=== PATIENT | male | born 1980 | race Caucasian/White ===

== ENCOUNTER 2016-12-16 16:35 | Emergency (ER) | payer SELFPAY ==
[2016-12-16 16:42] VITALS: BP 126/81
[2016-12-16] MEDS ORDERED: OXYCODONE-ACETAMINOPHEN 5-325 MG TABLET PO ONE (17:28)
[2016-12-16] MEDS ORDERED: PROMETHAZINE HCL 25 MG TABLET PO ONE (17:28)
[2016-12-16] MEDS ORDERED: CLINDAMYCIN HCL 150 MG CAPSULE PO ONE (17:29)
--- NOTE | 2016-12-16 17:39 | ER Document Report ---
ED Oral Problem - General Chief Complaint: Dental Injury Stated Complaint: FALL,MOUTH INJURY Time Seen by Provider: 12/16/16 17:25 Notes: Patient fell going up some steps and he hit his upper teeth and lip against the edge of a step. It caused his upper left central incisor to be avulsed from the gum. Denies any other injuries. No loss of consciousness. No neurologic deficits. Does not have any neck pain. TRAVEL OUTSIDE OF THE [place] IN LAST 30 DAYS: No - Related Data Allergies/Adverse Reactions: cillins Allergy (Uncoded 12/16/16 16:40) Past Medical History - Social History Smoking Status: Never Smoker Chew tobacco use (# tins/day): No Frequency of alcohol use: None Drug Abuse: None Family History: Reviewed & Not Pertinent Patient has suicidal ideation: No Patient has homicidal ideation: No Musculoskeltal Medical History: Denies None, Denies Hx Arthritis, Denies Hx Fibromyalgia, Denies Hx Gout, Denies Hx Multiple Sclerosis, Denies Hx Muscular Dystrophy, Denies Hx Muscle Spasm, Denies Hx Muscle Weakness, Denies Hx Musculoskeletal Deformity, Denies Hx Musculoskeletal Trauma, Denies Hx Myositis , Denies Hx Restless Leg Syndrome, Denies Other - Immunizations Hx Diphtheria, Pertussis, Tetanus Vaccination: Yes Review of Systems - Review of Systems Notes: REVIEW OF SYSTEMS: CONSTITUTIONAL : Denies fever. EENT: See HPI. CARDIOVASCULAR: Denies chest pain. RESPIRATORY: Denies cough, chest congestion, or shortness of breath. GASTROINTESTINAL: Denies abdominal pain or nausea, vomiting, or diarrhea. MUSCULOSKELETAL: Denies back or neck pain. Denies joint pain or swelling. SKIN: Denies rash or skin lesions. NEUROLOGICAL: Denies LOC or altered mental status. Denies headache. Denies sensory loss or motor deficits. ALL OTHER SYSTEMS REVIEWED AND NEGATIVE. Physical Exam - Vital signs Vitals: Pulse BP Pulse Ox 96 126/81 H 96 12/16/16 16:39 12/16/16 16:39 12/16/16 16:39 Interpretation: Normal - Notes Notes: PHYSICAL EXAMINATION: GENERAL: Well-appearing HEAD: Atraumatic, normocephalic. ENT: oropharynx clear without exudates. Moist mucous membranes. Left upper central incisor has been completely avulsed and patient has it in a cup of milk. The gingiva around the socket appears to be intact. There is no lacerations requiring repair. NECK: Normal range of motion, supple. LUNGS: Breath sounds clear and equal bilaterally. HEART: Regular rate and rhythm without murmurs. ABDOMEN: Soft, nontender. No guarding or rebound. BACK: No tenderness throughout entire back. EXTREMITIES: Normal range of motion without pain. NEUROLOGICAL: Normal speech, normal gait. Normal sensory, motor, and reflex exams. Awake, alert, and oriented x3. Cranial nerves normal. Course - Re-evaluation Re-evalutation: 12/16/16 21:42 I rinsed the tooth off and then reinserted it into its socket in proper alignment. I forcefully pushed it up firmly and it seems to have a fairly firm seating in the socket. I provided the patient with a small 2 x 2 gauze bandage to used to bite down on to keep the tooth in place. I spoke with oral surgeon, Dr. Feldman, who agreed to see the patient in his office tomorrow morning at 8:00. I appreciate Dr. Feldman kind willingness to help out with this patient's care. - Vital Signs Vital signs: Temp Pulse Resp BP Pulse Ox 98.6 F 96 126/81 H 96 12/16/16 16:42 12/16/16 16:39 12/16/16 16:39 12/16/16 16:39 Discharge - Discharge Clinical Impression: Avulsed tooth Qualifiers: Encounter type: initial encounter Qualified Code(s): S03.2XXA - Dislocation of tooth, initial encounter Condition: Stable Disposition: HOME, SELF-CARE Additional Instructions: Avulsed Tooth Permanent teeth that have been avulsed or knocked out of their socket in the jaw might be saved if re-inserted in the socket as soon as possible. Salvage of the tooth depends on how long the tooth was out of the socket, how badly the blood supply into the socket was damaged, whether the tooth itself was damaged, comination of the socket with bacteria or subsequent infection, and other factors. Following re-insertion, the tooth will need to be stabilized by an oral surgeon or other dental specialist using wires or other devises. If the tooth is not saved, an eventual root canal procedure may be necessary. Clindamycin You have been given a prescription for the antibiotic clindamycin. It is often prescribed for infections in the mouth, such as dental infections or abscesses, and for skin infections due to MRSA. It's important that you take all the medication, unless instructed otherwise by your physician. Failure to complete the entire course can result in relapse of your condition. Common side effects of antibiotics include nausea, intestinal cramping, or diarrhea. Women may develop vaginal yeast infections, and babies can get yeast (thrush) in the mouth following the use of antibiotics. Contact your physician if you develop significant side effects from this medication. Allergy to this antibiotic can result in hives, wheezing, faintness, or itching. If symptoms of allergy occur, stop the medication and call the doctor. Oral Narcotic Medication You have been given a prescription for pain control. This medication is a narcotic. It's best taken with food, as nausea can result if taken on an empty stomach. Don't operate machinery or drive within six hours of taking this medication. Do not combine this medicine with alcohol, or with any medication which can cause sedation (such as cold tablets or sleeping pills) unless you get permission from the physician. Narcotics tend to cause constipation. If possible, drink plenty of fluids and eat a diet high in fiber and fruits. Antinausea Medication You have been given a medication to suppress nausea and vomiting. This type of medication can be given as a shot, pill, or suppository. It will usually last for many hours. Pills and shots usually last six to eight hours, suppositories last about 12 hours. For the typical illness, only one or two doses of the medication may be necessary. Mild lightheadedness may occur. This type of medicine can cause drowsiness. Do not drive or operate dangerous machinery while under its influence. Do not mix with alcohol. See your doctor at once if you have muscle spasms or tightness, or uncontrollable motions (particularly of the neck, mouth, or jaw). Persistent vomiting or severe lightheadedness should also be evaluated by the physician. FOLLOW-UP CARE: If you have been referred to a physician for follow-up care, call the physician s office for an appointment as you were instructed or within the next two days. If you experience worsening or a significant change in your symptoms, notify the physician immediately or return to the Emergency Department at any time for re-evaluation. Be at Dr. Feldman's office at 8 AM tomorrow morning. Prescriptions: Clindamycin HCl 300 mg PO QID #40 capsule Oxycodone HCl/Acetaminophen [Percocet 5-325 mg Tablet] 1 - 2 tab PO Q4H PRN #15 tablet PRN Reason: Promethazine HCl [Phenergan 25 mg Tablet] 1 - 2 tab PO Q6H PRN #15 tablet PRN Reason: Referrals: BELINDA FELDMAN MD [ACTIVE STAFF] - Follow up tomorrow
== END 2016-12-16 17:49 | disposition home or self-care (01) ==
LOC: ER 16:35
DX: S03.2XXA Dislocation of tooth, initial encounter (principal); W10.9XXA Fall (on) (from) unspecified stairs and steps, initial encounter; Z88.0 Allergy status to penicillin
CPT/HCPCS: 99283